=== PATIENT | female | born 1960 | race Hispanic/Latino ===

== ENCOUNTER 2019-01-06 04:38 | Observation (INO) | payer SELFPAY ==
[~2019-01-06] VITALS: Ht 154.9 cm; Wt 81.6 kg
[2019-01-06] MEDS ORDERED: ASPIRIN 81 MG CHEW TAB PO ONE ×2 (05:45→07:15)
[2019-01-06 05:53] LABS: BASOPHILS # (AUTO) 0.1 (0.0-0.1); BASOPHILS % 0.4 % (0.0-1.0); EOSINOPHILS # (AUTO) 0.3 (0.0-0.4); EOSINOPHILS % 2.4 % (0.0-6.0); HEMATOCRIT 50.6 % (34.2-44.1); LYMPHOCYTES # (AUTO) 1.1 (1.0-3.2); LYMPHOCYTES % 9.7 % (18.0-39.1); MEAN CORPUSCULAR HEMOGLOBIN 30.3 pg (28-32); MEAN CORPUSCULAR HGB CONC 33.6 g/dL (31-35); MEAN CORPUSCULAR VOLUME 90.2 fL (81-99); MONOCYTES # (AUTO) 0.5 (0.2-0.8); MONOCYTES % 4.4 % (4.4-11.3); NEUTROPHILS # (AUTO) 9.7 (2.1-6.9); NEUTROPHILS % 82.8 % (38.7-80.0); PLATELET COUNT 309 x10e3/uL (140-360); RED BLOOD COUNT 5.61 x10e6/uL (3.6-5.1); RED CELL DISTRIBUTION WIDTH 13.6 % (11.7-14.4)
[2019-01-06 06:09] LABS: CREATINE KINASE MB 2.6 ng/mL (0-5.0)
[2019-01-06 06:12] LABS: ALBUMIN 4.3 g/dL (3.5-5.0); ANION GAP 17.6 mmol/L (8-16); CALCIUM 9.7 mg/dL (8.4-10.2); CREATININE, SERUM 0.98 mg/dL (0.57-1.11); POTASSIUM 3.6 mmol/L (3.5-5.1)
[2019-01-06] MEDS ORDERED: ALBUTEROL/IPRATROPIUM 3 ML NEB NEB ONE (06:30)
[2019-01-06] MEDS ORDERED: METHYLPREDNISOLONE SOD SUCC 125 MG/2ML VIAL IV ONE (06:30)
[2019-01-06] MEDS ORDERED: HYDRALAZINE HCL 20 MG/ML VIAL IV STA (06:51)
--- NOTE | 2019-01-06 06:54 | Diagnostic Imaging Report ---
Examination: Single AP view of the chest. COMPARISON: None. INDICATION: Chest pain IMPRESSION: 1. Lines and Tubes: None 2. Lungs are grossly clear. No consolidation or effusion. 3. Cardiomediastinal silhouette is normal. Pulmonary vasculature is normal. 4. No acute bony abnormalities. Signed by: Dr. Zhao Patel M.D. on 01/06/2019 6:51 AM
[2019-01-06] MEDS ORDERED: HYDRALAZINE HCL 20 MG/ML VIAL IV PRN (07:15)
[2019-01-06] MEDS: AZITHROMYCIN 500MG/NS 250 ML 250 ML IV SCH (07:20)
[2019-01-06] MEDS: HYDROCHLOROTHIAZIDE 25 MG TAB PO SCH (07:23)
--- NOTE | 2019-01-06 08:08 | NUR ---
PATIENT C/O OF FEELING JITTERY AFTER BREATHING TX
[2019-01-06] MEDS ORDERED: ONDANSETRON HCL INJ 2MG/ML 2ML 2 MG/ML VIAL IV STA (08:49)
--- OUTSIDE RECORDS SUMMARY | 2019-01-06 10:56 | XMS REPORT ---
Author Author [facility] Address Unknown Phone Unavailable Care Team Providers Care Table Assembler Name Role Phone Fabian CARCAMO Unavailable Unavailable Problems This patient has no known problems. Allergies, Adverse Reactions, Alerts This patient has no known allergies or adverse reactions. Medications This patient has no known medications. Results Test Description Test Time Test Comments Text Results Atomic Results Result Comments CHEST SINGLE (PORTABLE) 2019-01-06 06:51:00 [place] [address] Patient Name: PATTI ZEPEDA MR #: [id number] : 1960 Age/Sex: 58/F Req #: [id number] Adm Physician: Ordered by: MUMTAZ CARCAMO MD Report #: [id number] Location: ER Room/Bed: Procedure: [id number] DX/CHEST SINGLE (PORTABLE) Exam Date: Exam Time: REPORT STATUS: Signed Examination: Single AP view of the chest. COMPARISON: No ne. INDICATION: Chest pain IMPRESSION: 1. Lines and Tubes: None 2. Lungs are grossly clear. No consolidation or effusion. 3. Cardiomediastinal silhouette is normal. Pulmonary vasculature is normal. 4. No acute bony abnormalities. Signed by: Dr. Ted Patel M.D. on 01/06/2019 6:51 AM Dictated By: TED PATEL MD 0 Transcribed By: ADRIANA on 01/06/19650 COPY TO: MUMTAZ CARCAMO MD
--- NOTE | 2019-01-06 11:40 | NUR ---
TURBINE ENGINEER AT BEDSIDE
--- NOTE | 2019-01-06 11:55 | NUR ---
FERNANDA PLACED ON BED
--- NOTE | 2019-01-06 13:40 | NUR ---
History and PHysical cc: sob HPI: 58yoF, PCP Dr.John Krishnamurthy, developed chest palpitaton for 1 day with SOb and cough for 1 day; left sided chest discomfort. was not taking her BP meds at home. PMH: HTN, TIA, obesity PShx: appendectomy allergies; see emr Fh/Sh; ; 6 children; no etoh/cigs/illicits meds; see MAR ROS; no f/c/s/n/V/D/PITT/vision changes/skin rash v/s; rev'd PE tired appearing ns1s2; left systolic murmur mod bs; scattered wheezing soft nt nd no e/t a&ox3; olguin skin dyr n. affect labs/med; rev'd A/P: 58yoM Acute bronchitis HTN emergency JOCELYN Dehydration Obesity BMI 34 HTN Mild MR PLAN steroids/azithromycin/nebs/loratadine/antitussives Control BP pulm consult lovenox; roberto Rashid MD, PHD.
[2019-01-06] MEDS ORDERED: ALBUTEROL/IPRATROPIUM 3 ML NEB NEB PRN (13:45)
[2019-01-06] MEDS ORDERED: METHYLPREDNISOLONE SOD SUCC 125 MG/2ML VIAL IV SCH ×2 (14:00→21:00)
[2019-01-06 14:32] LABS: CREATINE KINASE MB 3.5 ng/mL (0-5.0)
[2019-01-06 14:53] LABS: CHOL/HDL RATIO 4.2 (3.0-3.6)
--- NOTE | 2019-01-06 15:02 | NUR ---
DR. OTERO IN E.R. TO EVALUATE PATIENT
[2019-01-06] MEDS ORDERED: LEVALBUTEROL HCL SOLN NEBU 0.63 MG/3 ML NEB INH PRN (15:15)
--- NOTE | 2019-01-06 15:18 | NUR ---
DR. NIKOLAY MAX AT BEDSIDE EVALUATING PATIENT. HE IS AWARE OF THE PATIENTS TACHYCARDIA WHEN SHE BEGINS MOVING AROUND. HE WANTS TO CHANGE THE ALBUTEROL TO XOPENEX
[2019-01-06] MEDS: FAMOTIDINE 20 MG TAB PO SCH (15:24)
--- NOTE | 2019-01-06 16:05 | NUR ---
PATIENT UP IN BATHROOM CLEANING UP WITH WIPES AND CHANGING GOWN
[2019-01-06] MEDS ORDERED: ENOXAPARIN SOD INJ 40 MG/0.4 ML SYR SC SCH (17:00)
--- NOTE | 2019-01-06 18:30 | NUR ---
PT REC'D FROM ER AT THIS TIME TO OBS 181; VS FOLLOWS: BP 214/112, HR 107, RR26, O2 SAT 92% ON ROOM AIR, HR IRREGULAR AT 88-107 BPM. TELE BOX #31 RUNNING SINUS TACH PER MANAGER ZONE. BED IN LOWEST POSITION, WHEELS LOCKED, SR^X2, CALL LIGHT IN REACH WITH INSTRUCTIONS TO CALL FOR ASSISTANCE. WILL PLACE A CALL TO ATTENDING TO INFORM OF ELEVATED BP.
[2019-01-06 19:00] VITALS: BP 214/112
[2019-01-06] MEDS: LEVALBUTEROL HCL SOLN NEBU 1.25 MG/3 ML NEB INH SCH (19:32)
[2019-01-06] MEDS ORDERED: METOPROLOL TARTRATE 25 MG TAB PO SCH (20:00)
--- NOTE | 2019-01-06 20:00 | NUR ---
CALL PLACED TO DR MAX NOTIFIED PT RUNNING SINUS TACH 123-130'S.ALSO NOTIFIED DR MAX THAT PT C/O COUGH AND THAT PT STATED SHE IS NOT ABLE TO TAKE REST DUE TO COUGHING TOO MUCH.N/O'S RECEIVED.
[2019-01-06] MEDS: METHYLPREDNISOLONE SOD SUCC 40 MG/ML VIAL 1ML IV SCH (20:32)
--- NOTE | 2019-01-06 20:39 | Consultation ---
DATE OF CONSULTATION: Pulmonary Critical Care Consultation PRIMARY CARE PHYSICIAN: Stone Krishnamurthy DO CHIEF COMPLAINT: Coughing and pain with inspiration. HISTORY OF PRESENT ILLNESS: The patient is a 58-year-old woman. She has a history of hypertension. Apparently, she was not taking her medications. Over the past 1-2 days, she noticed some pain on the left side of her chest with deep inspiration. She also complained of some cough. She denied any phlegm production. She did have some wheezing and dyspnea, but that has improved with nebulizer treatment. PAST MEDICAL HISTORY: 1. Hypertension. 2. No prior history of asthma or COPD. PAST SURGICAL HISTORY: 1. Status post appendectomy. 2. Status post cardiac catheterization in 2013 that was within normal limits. SOCIAL HISTORY: The patient quit smoking 20 years ago. She is not a drinker. ALLERGIES: THERE ARE NO KNOWN DRUG ALLERGIES. FAMILY HISTORY: Family history is noncontributory. REVIEW OF SYSTEMS: The patient denies any fevers. There is no headache. She is not having any sore throat. She has no neck pain. CARDIAC: Reveals regular rate and rhythm with normal S1, S2. There are no murmurs or rubs. LUNGS: Auscultation of lungs show clear breath sounds bilaterally. There is no wheezing. ABDOMEN: Soft, nontender. There is no rebound or guarding. EXTREMITIES: Show no leg edema or calf tenderness. There is no cyanosis or clubbing. SKIN: Shows no rashes. NEUROLOGICAL: Shows the patient is afebrile. She is not having any headache. There is no neck pain. She has no sore throat. She did note some cough and some pain with inspiration. She had no abdominal pain. She had no nausea or vomiting. She had no leg edema. PHYSICAL EXAMINATION: VITAL SIGNS: The patient is afebrile. Blood pressure on presentation was 198/131, but it has improved with treatment to 127/93. The pulse rate is 101 and saturation is 100%. HEENT: Shows no facial swelling or erythema. LYMPHATIC: Shows no submandibular, cervical, or supraclavicular adenopathy. CARDIAC: Reveals regular rate and rhythm with normal S1 and S2. There are no murmurs or rubs heard. LUNGS: Auscultation of lungs shows clear breath sounds bilaterally. There is no wheezing. ABDOMEN: Soft, nontender. There is no rebound or guarding. EXTREMITIES: Show no leg edema or calf tenderness. There is no cyanosis or clubbing. SKIN: Shows no rashes. NEUROLOGICAL: Shows no focal abnormalities. RADIOGRAPHIC DATA: Chest x-ray shows no active disease. LABORATORY DATA: Carbon dioxide is 20. BUN to creatinine ratio is normal. Other electrolytes are within normal limits. White blood cell count is 11.7 and hemoglobin is 17. The platelet count is 309. IMPRESSION: 1. Respirophasic chest, pleuritic chest pain has improved. 2. Hypertension. 3. Cough. PLAN: 1. Check EKG. 2. Use bronchodilators as needed. 3. Repeat chest x-ray in a.m. 4. Begin antihypertensive regimen. Shubham Davis MD [facility] /[id number]
[2019-01-06] MEDS ORDERED: GUAIFENESIN/DEXTROMETHORPHAN LIQD 5 ML UDC PO SCH (21:00)
[2019-01-06 22:30] VITALS: BP 164/97
[2019-01-06] MEDS: BENZONATATE 100 MG CAP PO SCH (22:30)
[2019-01-07 00:18] VITALS: BP 151/89
[2019-01-07] MEDS: LEVALBUTEROL HCL SOLN NEBU 1.25 MG/3 ML NEB INH SCH ×2 (02:10→07:32)
[2019-01-07] MEDS ORDERED: METOPROLOL TARTRATE 25 MG TAB PO SCH ×2 (06:00→09:00)
[2019-01-07] MEDS ORDERED: GUAIFENESIN/DEXTROMETHORPHAN LIQD 5 ML UDC PO SCH (06:00)
[2019-01-07 06:01] LABS: BASOPHILS % 0.1 % (0.0-1.0); LYMPHOCYTES # (AUTO) 0.8 (1.0-3.2); LYMPHOCYTES % 7.8 % (18.0-39.1); MEAN CORPUSCULAR HEMOGLOBIN 29.9 pg (28-32); MEAN CORPUSCULAR HGB CONC 32.7 g/dL (31-35); MEAN CORPUSCULAR VOLUME 91.4 fL (81-99); MONOCYTES # (AUTO) 0.5 (0.2-0.8); MONOCYTES % 4.6 % (4.4-11.3); NEUTROPHILS # (AUTO) 9.2 (2.1-6.9); PLATELET COUNT 285 x10e3/uL (140-360); RED BLOOD COUNT 5.36 x10e6/uL (3.6-5.1)
[2019-01-07 06:06] VITALS: BP 143/85
[2019-01-07] MEDS: BENZONATATE 100 MG CAP PO SCH (06:19)
--- NOTE | 2019-01-07 06:20 | NUR ---
PT WENT TO RADIOLOGY VIA WHEEL CHAIR IN STABLE CONDITION AT THIS TIME.
[2019-01-07 06:26] LABS: ANION GAP 16.7 mmol/L (8-16); CALCIUM 9.6 mg/dL (8.4-10.2); CREATININE, SERUM 1.03 mg/dL (0.57-1.11); POTASSIUM 3.7 mmol/L (3.5-5.1)
--- NOTE | 2019-01-07 06:34 | NUR ---
PT BACK FROM RADIOLOGY IN STABLE CONDITION.
[2019-01-07] MEDS ORDERED: PREDNISONE20 MG PO (06:40)
[2019-01-07] MEDS ORDERED: LORATADINE10 MG PO (06:40)
[2019-01-07] MEDS ORDERED: ESIDRIX25 MG PO (06:40)
[2019-01-07] MEDS ORDERED: TESSALON PERLE100 MG PO (06:40)
[2019-01-07] MEDS ORDERED: ZITHROMAX500 MG PO (06:40)
[2019-01-07] MEDS ORDERED: PEPCID20 MG PO (06:40)
[2019-01-07] MEDS ORDERED: METOPROLOL TART50 MG PO (06:40)
[2019-01-07] MEDS ORDERED: FAMOTIDINE20 MG PO (06:40)
[2019-01-07] MEDS ORDERED: Guaifenesin/Dextromethorphan PO (06:40)
--- NOTE | 2019-01-07 06:44 | Diagnostic Imaging Report ---
EXAMINATION: PA and lateral views of the chest. COMPARISON: Portable chest 01/06/2019 CLINICAL HISTORY: COPD, pleuritic chest pain DISCUSSION: Lines/tubes: None. Lungs: Increased lucency in the upper lungs and increased retrosternal air, suggesting COPD changes. No consolidation or pulmonary edema Pleura: There is no pleural effusion or pneumothorax. Heart and mediastinum: Cardiomediastinal silhouette is unremarkable. Pulmonary vasculature is normal. Bones and soft tissues: No acute bony abnormalities. IMPRESSION: COPD changes, without acute cardiopulmonary abnormalities. Signed by: Dr. Zhao Patel M.D. on 01/07/2019 6:41 AM
--- NOTE | 2019-01-07 07:20 | NUR ---
REPORT GIVEN TO ONCOMING NURSE.PT RESTING IN BED WITH NO S/S OF DISTRESS.
--- NOTE | 2019-01-07 07:34 | NUR ---
DIscharge summary A/P: 58yoM Acute bronchitis HTN emergency JOCELYN Dehydration Obesity BMI 34 HTN Mild MR PLAN steroids/azithromycin/nebs/loratadine/antitussives Control BP pulm consult lovenox; pepcid d.c home f/u pcp 1 week d/c >35mins stable Hema Rashid MD, PHD.
[2019-01-07 08:00] VITALS: BP 192/88
[2019-01-07 08:30] VITALS: BP 192/88
[2019-01-07] MEDS: METHYLPREDNISOLONE SOD SUCC 40 MG/ML VIAL 1ML IV SCH (09:57)
[2019-01-07] MEDS: AZITHROMYCIN 500MG/NS 250 ML 250 ML IV SCH (09:57)
[2019-01-07] MEDS: HYDROCHLOROTHIAZIDE 25 MG TAB PO SCH (09:57)
[2019-01-07] MEDS: FAMOTIDINE 20 MG TAB PO SCH (09:57)
[2019-01-07] MEDS ORDERED: ALBUTEROL0.63 MG/3 (10:09)
== END 2019-01-07 11:00 | disposition home or self-care (01) ==
LOC: ER 04:38 → ERHOLD 10:54 → IMCU 18:37
PROVIDERS: ADMIT Internal Medicine; ATTEND Internal Medicine
DX: J20.9 Acute bronchitis, unspecified (principal); I10 Essential (primary) hypertension; I16.1 Hypertensive emergency; E66.9 Obesity, unspecified; Z68.34 Body mass index [BMI] 34.0-34.9, adult; E86.0 Dehydration; N17.9 Acute kidney failure, unspecified; I34.0 Nonrheumatic mitral (valve) insufficiency; R01.1 Cardiac murmur, unspecified; Z79.899 Other long term (current) drug therapy
CPT/HCPCS: 36415 ×2; 71045; 71046; 80048; 80053; 80061; 82550; 82553; 83036; 83880; 84484; 85025 ×2; 93005; 93306; 94640 ×3; 96374; 99284; G0378 ×2; J0360; J0456 ×2; J1650; J2405; J2920 ×2; J2930